=== PATIENT | male | born 1960 | race Caucasian/White ===

== ENCOUNTER 2023-02-14 10:22 | Day surgery (SDC) | payer BC ==
[~2023-02-14 10:22] MED LIST: Lactated Ringers 1,000 ML IV SCH
[2023-02-14] MEDS ORDERED: Propofol 200 MG/20 ML SDV ONE (10:29)
[2023-02-14] MEDS ORDERED: Lidocaine 2% 5 ML SDV ONE (10:29)
[2023-02-14] MEDS ORDERED: Lactated Ringers 1,000 ML IV SCH (11:30)
== END 2023-02-14 12:20 | disposition home or self-care (01) ==
LOC: MW.SDS 10:22
PROVIDERS: ATTEND Surgery
DX: Z12.11 Encounter for screening for malignant neoplasm of colon (principal); K57.30 Diverticulosis of large intestine without perforation or abscess without bleeding; F41.9 Anxiety disorder, unspecified; N40.0 Benign prostatic hyperplasia without lower urinary tract symptoms; D69.6 Thrombocytopenia, unspecified; F32.A Depression, unspecified; D72.819 Decreased white blood cell count, unspecified; E66.9 Obesity, unspecified; G47.33 Obstructive sleep apnea (adult) (pediatric); Z79.82 Long term (current) use of aspirin; Z79.899 Other long term (current) drug therapy; Z68.35 Body mass index [BMI] 35.0-35.9, adult; Z85.528 Personal history of other malignant neoplasm of kidney; K21.9 Gastro-esophageal reflux disease without esophagitis
CPT/HCPCS: 45378; J2704; J7120; 00812; J3490